=== PATIENT | female | born 1940 | race Caucasian/White ===

== ENCOUNTER 2016-10-24 08:22 | Outpatient (CLI) | payer MEDICARE, OTHER ==
[2012-11-20 09:35] VITALS: BP 104/53
== END 2016-10-24 08:23 ==
LOC: POD 08:22
PROVIDERS: ATTEND Podiatrist Public Medicine
DX: E11.9 Type 2 diabetes mellitus without complications (principal); B35.1 Tinea unguium; L60.0 Ingrowing nail; M79.674 Pain in right toe(s); M79.675 Pain in left toe(s)
CPT/HCPCS: 11721; G0463

== ENCOUNTER 2017-02-06 08:39 | Outpatient (CLI) | payer MEDICARE, OTHER ==
[2012-11-20 09:35] VITALS: BP 104/53
== END 2017-02-06 08:40 ==
LOC: POD 08:39
PROVIDERS: ATTEND Podiatrist Public Medicine
DX: E11.9 Type 2 diabetes mellitus without complications (principal); B35.1 Tinea unguium; L60.0 Ingrowing nail; M79.674 Pain in right toe(s); M79.675 Pain in left toe(s)
CPT/HCPCS: 11721; G0463

== ENCOUNTER 2017-02-14 10:09 | Outpatient (CLI) | payer MEDICARE, OTHER ==
[2012-11-20 09:35] VITALS: BP 104/53
[2017-02-14 10:40] LABS: MEAN CORPUSCULAR HEMOGLOBIN 29.7 pg (28.0-34.0); MEAN CORPUSCULAR VOLUME 92.3 fl (80.0-100.0)
[2017-02-14 11:04] LABS: eGFR (African) > 60; eGFR (Non-African) > 60
== END 2017-02-14 10:10 ==
LOC: LAB 10:09
PROVIDERS: ATTEND Family Medicine
DX: E11.9 Type 2 diabetes mellitus without complications (principal); R53.83 Other fatigue
CPT/HCPCS: 36415; 80053; 80061; 83036; 83540; 84443; 85027

== ENCOUNTER 2017-05-08 08:37 | Outpatient (CLI) | payer MEDICARE, OTHER ==
[2012-11-20 09:35] VITALS: BP 104/53
== END 2017-05-08 08:40 ==
LOC: POD 08:37
PROVIDERS: ATTEND Podiatrist Public Medicine
DX: E11.9 Type 2 diabetes mellitus without complications (principal); B35.1 Tinea unguium; L60.0 Ingrowing nail; M79.674 Pain in right toe(s); M79.675 Pain in left toe(s)
CPT/HCPCS: 11721; G0463

== ENCOUNTER 2017-08-07 09:28 | Outpatient (CLI) | payer MEDICARE, OTHER ==
[2012-11-20 09:35] VITALS: BP 104/53
== END 2017-08-07 09:30 ==
LOC: POD 09:28
PROVIDERS: ATTEND Podiatrist Public Medicine
DX: B35.1 Tinea unguium (principal); L60.0 Ingrowing nail; M79.674 Pain in right toe(s); M79.675 Pain in left toe(s)
CPT/HCPCS: 11721; G0463

== ENCOUNTER 2017-11-13 08:24 | Outpatient (CLI) | payer MEDICARE, OTHER ==
[2012-11-20 09:35] VITALS: BP 104/53
== END 2017-11-13 08:25 ==
LOC: POD 08:24
PROVIDERS: ATTEND Podiatrist Public Medicine
DX: E11.9 Type 2 diabetes mellitus without complications (principal); B35.1 Tinea unguium; L60.0 Ingrowing nail; M79.674 Pain in right toe(s); M79.675 Pain in left toe(s)
CPT/HCPCS: 11721; G0463

== ENCOUNTER 2018-02-12 08:22 | Outpatient (CLI) | payer MEDICARE, OTHER ==
[2012-11-20 09:35] VITALS: BP 104/53
== END 2018-02-12 08:23 ==
LOC: POD 08:22
PROVIDERS: ATTEND Podiatrist Public Medicine
DX: E11.9 Type 2 diabetes mellitus without complications (principal); B35.1 Tinea unguium; L60.0 Ingrowing nail; M79.674 Pain in right toe(s); M79.675 Pain in left toe(s)
CPT/HCPCS: 11721; G0463

== ENCOUNTER 2018-04-14 08:32 | Outpatient (CLI) | payer MEDICARE, OTHER ==
[2012-11-20 09:35] VITALS: BP 104/53
[2018-04-14 09:18] LABS: BASOPHILS % 0.5 (0.0-1.5); EOSINOPHILS % 3.8 % (0.0-6.8); MEAN CORPUSCULAR HEMOGLOBIN 31.9 pg (28.0-34.0); MEAN CORPUSCULAR VOLUME 95.8 fl (80.0-100.0); MONOCYTES % 4.6 % (0.0-11.0); NEUTROPHILS # 3.7 # k/uL (1.4-7.7)
[2018-04-14 09:27] LABS: eGFR (African) > 60; eGFR (Non-African) > 60
== END 2018-04-14 08:33 ==
LOC: LAB 08:32
PROVIDERS: ATTEND Nurse Practitioner
DX: E11.69 Type 2 diabetes mellitus with other specified complication (principal); Z79.4 Long term (current) use of insulin
CPT/HCPCS: 36415; 80053; 80061; 83036; 84443; 85025

== ENCOUNTER 2018-04-28 09:53 | Outpatient (CLI) | payer MEDICARE, OTHER ==
[2012-11-20 09:35] VITALS: BP 104/53
== END 2018-04-28 09:54 ==
LOC: LAB 09:53
PROVIDERS: ATTEND Internal Medicine Endocrinology, Diabetes & Metabolism
DX: E03.9 Hypothyroidism, unspecified (principal)
CPT/HCPCS: 36415; 84439; 84443; 86376